=== PATIENT | female | born 1940 | race Two or more races ===

== ENCOUNTER 2017-08-22 07:14 | Day surgery (SDC) | payer OTHER ==
[~2017-08-22 07:14] MED LIST: ASPIR 8181 MG; GLIPIZIDE5 MG PO; JANUVIA100 MG PO; LAMICTAL200 MG PO; LAMICTAL25 MG PO; SIMBASTATIN; [UNRECOGNIZED DRUG - OTHER]
[2017-08-22] MEDS ORDERED: MACROBID 100 M100 MG PO (11:44)
[2017-08-22] MEDS ORDERED: ULTRACET PO (11:45)
== END 2017-08-22 14:10 | disposition home or self-care (01) ==
LOC: CIR.AMB 07:14
DX: N81.11 Cystocele, midline (principal); N81.6 Rectocele; N81.5 Vaginal enterocele